=== PATIENT | female | born 1950 | race African-American/Black ===

== ENCOUNTER 2024-05-15 21:29 | Emergency (ER) | payer OTHER ==
[~2024-05-15] VITALS: Ht 165.1 cm; Wt 82.0 kg
[2024-05-15 21:41] VITALS: O2SAT 99
[2024-05-15] MEDS: MECLIZINE 25MG TABLET PO ONE (22:30)
[2024-05-15] MEDS: ONDANSETRON HCL 4MG/2ML INJ IV ONE (22:30)
[2024-05-15 22:57] LABS: BASOPHILS % 1.2 % (0.0-2.0); EOSINOPHILS % 0.8 % (0.0-5.0); HEMATOCRIT. 38.4 % (36.0-48.0); HEMOGLOBIN. 12.7 g/dL (12.0-16.0); LYMPHOCYTES % 11.9 % (20.0-50.0); MEAN CORPUSCULAR HEMOGLOBIN 27.5 pg (28.0-32.0); MEAN CORPUSCULAR HGB CONC 33.1 g/dL (31.0-37.0); MEAN CORPUSCULAR VOLUME 82.9 fL (81.0-99.0); MEAN PLATELET VOLUME 8.4 fl (7.4-10.4); MONOCYTES % 3.4 % (2.0-8.0); NEUTROPHILS % 82.7 % (40.0-76.0); PLATELET 363 x1000/uL (130-400); RED BLOOD CELL COUNT 4.64 mill/uL (4.2-5.4); RED CELL DISTRIBUTION WIDTH 15.4 % (11.6-14.6); WHITE BLOOD COUNT 11.3 x1000/uL (4.5-11.0)
[2024-05-15 23:06] LABS: CHLORIDE 110 mEq/L (98-107); POTASSIUM 3.7 mEq/L (3.5-5.1); SODIUM 143 mEq/L (136-145)
[2024-05-15 23:07] LABS: CALCIUM 9.2 mg/dL (8.7-10.4); CARBON DIOXIDE 24 mEq/L (21-32); PROTHROMBIN TIME 11.2 sec (9.6-11.0)
[2024-05-15 23:12] LABS: CREATININE 1.3 mg/dL (0.6-1.0); GLUCOSE 202 mg/dL (70-105); UREA NITROGEN BLOOD 19 mg/dL (9-23)
[2024-05-15 23:14] LABS: ALANINE AMINOTRANSFERASE 22 IU/L (10-49); ASPARTATE AMINOTRANSFERASE 9 IU/L (<34)
[2024-05-15 23:15] LABS: BILIRUBIN TOTAL 0.3 mg/dL (0.1-1.0); PROTEIN TOTAL 6.8 g/dL (6.0-8.3)
[2024-05-15 23:16] LABS: BILIRUBIN DIRECT < 0.1 mg/dL (<=3.0)
[2024-05-15 23:18] LABS: ETHANOL BLOOD < 10 mg/dL (<10); TROPONIN I HIGH SENSITIVITY 36 ng/L (3.0-34)
[2024-05-16 01:42] LABS: TROPONIN I HIGH SENSITIVITY 40 ng/L (3.0-34)
[2024-05-16] MEDS: SODIUM CHLORIDE 0.9% 1,000 ML IV ONE (03:06)
[2024-05-16] MEDS: IOHEXOL-350 100 ML BOTTLE ONE (04:54)
[2024-05-16 05:58] VITALS: BP 161/81; PULSE 88; RESP 16; TEMP 37.1; O2SAT 99
[2024-05-16] MEDS ORDERED: HYDRALAZINE 20MG/ML VIAL IV PRN (09:15)
[2024-05-16] MEDS ORDERED: ACETAMINOPHEN 325MG TABLET PO PRN (09:15)
[2024-05-16] MEDS ORDERED: ONDANSETRON HCL 4MG/2ML INJ IV PRN (09:15)
[2024-05-16] MEDS ORDERED: HYDROCODONE/ACETAMINOPHEN 5/325MG TABLET PO PRN (09:15)
[2024-05-16] MEDS ORDERED: CLONIDINE 0.1MG TABLET PO PRN (09:15)
[2024-05-16] MEDS ORDERED: SODIUM CHLORIDE 0.9% 1,000 ML IV SCH (10:25)
[2024-05-16] MEDS ORDERED: ENOXAPARIN 40MG/0.4ML SYR SUBCUT SCH (10:26)
[2024-05-16] MEDS ORDERED: NALOXONE HCL 0.4MG/ML VIAL IV PRN (10:30)
[2024-05-16] MEDS ORDERED: ATORVASTATIN CALCIUM 40MG TABLET PO SCH (21:00)
[2024-05-17] MEDS ORDERED: ASPIRIN 81MG EC TABLET PO SCH (09:00)
[2024-05-17] MEDS ORDERED: CLOPIDOGREL 75MG TABLET PO SCH (09:00)
[2024-05-17] MEDS ORDERED: PANTOPRAZOLE SODIUM 40 MG/VIAL IV SCH (09:00)
== END 2024-05-16 06:11 | disposition short-term general hospital (02) ==
LOC: ER 21:29 → EDBEDREQTM 05-16 01:07 → EDBEDREQDT 05-16 01:07 → EDBEDREQ 05-16 01:07 → ER 05-16 06:11
DX: I21.4 Non-ST elevation (NSTEMI) myocardial infarction (principal); R11.2 Nausea with vomiting, unspecified; E11.9 Type 2 diabetes mellitus without complications; R42 Dizziness and giddiness; N17.9 Acute kidney failure, unspecified; I25.2 Old myocardial infarction; Z55.6 Problems related to health literacy; Z86.73 Personal history of transient ischemic attack (TIA), and cerebral infarction without residual deficits
CPT/HCPCS: 80076; 80048; 80320; 83880; 85025; 85610; 84484 ×2; 36415 ×2; 71045; 70450; 93005; 99291; 70496; 70498; 96360; 96361; J7030; Q9967; 99285; G0480